=== PATIENT | male | born 1990 | race Caucasian/White ===

== ENCOUNTER 2018-01-03 23:57 | Emergency (ER) | payer MEDICAID ==
[~2018-01-03] VITALS: Ht 177.8 cm; Wt 111.7 kg
[2018-01-04 00:01] VITALS: BP 135/77
== END 2018-01-04 00:30 | disposition left against medical advice (07) ==
LOC: ED 01-04 00:24
DX: F10.120 Alcohol abuse with intoxication, uncomplicated (principal); K08.89 Other specified disorders of teeth and supporting structures; F17.210 Nicotine dependence, cigarettes, uncomplicated
CPT/HCPCS: 99281

== ENCOUNTER 2019-12-11 13:02 | Inpatient (IN) | payer MEDICAID ==
[~2019-12-11] VITALS: Ht 180.3 cm; Wt 110.6 kg
[2019-12-11] MEDS ORDERED: ACETAMINOPHEN 325 MG TABLET PO PRN (15:00)
[2019-12-11] MEDS ORDERED: ONDANSETRON ODT 4 MG PO PRN (15:00)
[2019-12-11] MEDS ORDERED: DOCUSATE 100 MG CAPSULE PO PRN (15:00)
[2019-12-11] MEDS ORDERED: POLYETHYLENE GLYCOL 17 GM PACKET PO PRN (15:00)
[2019-12-11] MEDS ORDERED: BISACODYL 10 MG SUPP PR PRN (15:00)
[2019-12-11] MEDS ORDERED: PLEASE ENTER HEIGHT AND WEIGHT MC SCH (16:30)
[2019-12-11] MEDS ORDERED: HALOPERIDOL 5 MG/ML IM PRN (16:30)
[2019-12-11 16:36] VITALS: BP 149/80
[2019-12-11] MEDS ORDERED: OLANZAPINE 10 MG INJ IM ONE ×2 (16:48→17:00)
[2019-12-11] MEDS ORDERED: LORazepam 2 MG/ML, 1ML ONE (16:48)
[2019-12-11] MEDS ORDERED: LORazepam 2 MG/ML, 1ML IM ONE (17:00)
[2019-12-11 20:00] VITALS: BP 130/80
[2019-12-12 07:28] VITALS: BP 126/75
[2019-12-12 09:15] LABS: ANION GAP 5 mmol/L (5-15); CALCIUM 9.3 mg/dL (8.5-10.1); CHLORIDE 107 mmol/L (98-107)
[2019-12-12 09:22] LABS: BASOPHILS # (AUTO) 0.03 x10^3/uL (0-0.1); BASOPHILS % (AUTO) 0 % (0-1); EOSINOPHILS # (AUTO) 0.13 x10^3/uL (0-0.4); EOSINOPHILS % (AUTO) 2 % (1-7); LYMPHOCYTES # (AUTO) 1.45 x10^3/uL (1-3.4); LYMPHOCYTES % (AUTO) 18 % (22-44); MD NO; MEAN CORPUSCULAR HEMOGLOBIN 30.8 pg (27.5-34.5); MEAN CORPUSCULAR HGB CONC 33.3 g/dL (33.2-36.2); MEAN CORPUSCULAR VOLUME 92.3 fL (81-97); MEAN PLATELET VOLUME 9.5 fL (7.4-10.4); MONOCYTES # (AUTO) 0.44 x10^3/uL (0.2-0.8); MONOCYTES % (AUTO) 6 % (2-9); NEUTROPHILS # (AUTO) 6.02 x10^3/uL (1.8-6.8); NEUTROPHILS % (AUTO) 75 % (42-75); PLATELET COUNT 241 x10^3/uL (130-400); RED BLOOD COUNT 5.32 x10^6/uL (4.38-5.82); RED CELL DISTRIBUTION WIDTH 13.4 % (9.4-14.8)
[2019-12-12 09:23] LABS: ALANINE AMINOTRANSFERASE 67 U/L (12-78); ALBUMIN 4.2 g/dL (3.4-5.0); ALKALINE PHOSPHATASE 84 U/L (45-117); BILIRUBIN,TOTAL 2.6 mg/dL (0.2-1.0); CHOL/HDL RATIO 5.2; CHOLESTEROL, TOTAL 262 mg/dL (140-239); CREATININE 1.04 mg/dL (0.7-1.3); FREE T4 (FREE THYROXINE) 1.18 ng/dL (0.76-1.46); HDL CHOL % 19 % (26-37); HDL CHOLESTEROL (DIRECT) 50 mg/dL (40-60); LDL CHOLESTEROL,CALCULATED 186 mg/dL (54-169); LDL/HDL RATIO 3.7 (0.5-3.0); TRIGLYCERIDES 132 mg/dL (50-200); VLDL CHOLESTEROL 26 mg/dL (0-25)
[2019-12-12 18:36] LABS: MICROSCOPIC NOT IND
[2019-12-12 19:06] VITALS: BP 142/79
[2019-12-13 07:00] VITALS: BP 105/63
== END 2019-12-13 13:50 | disposition home or self-care (01) | DRG 753 ==
LOC: 3E 15:33
PROVIDERS: ADMIT Psychiatry & Neurology Psychosomatic Medicine; ATTEND Psychiatry & Neurology Psychosomatic Medicine
DX: F31.64 Bipolar disorder, current episode mixed, severe, with psychotic features (principal); J45.909 Unspecified asthma, uncomplicated; R73.9 Hyperglycemia, unspecified; D75.1 Secondary polycythemia; F15.10 Other stimulant abuse, uncomplicated; F10.10 Alcohol abuse, uncomplicated; E66.9 Obesity, unspecified; D72.829 Elevated white blood cell count, unspecified; Z91.040 Latex allergy status; Z88.1 Allergy status to other antibiotic agents; Z88.8 Allergy status to other drugs, medicaments and biological substances; Z90.89 Acquired absence of other organs; Z72.0 Tobacco use; Z91.013 Allergy to seafood; Z68.34 Body mass index [BMI] 34.0-34.9, adult
CPT/HCPCS: 36415; 71045; 80053; 80061; 81003; 82140; 84439; 84443; 85025; 93005; J2060